=== PATIENT | male | born 1935 | race Caucasian/White ===

== ENCOUNTER 2021-05-24 17:07 | Inpatient (IN) | payer MEDICARE ==
[~2021-05-24] VITALS: Ht 157.4 cm; Wt 43.7 kg
[2021-05-24 17:34] VITALS: BP 122/69
[2021-05-24 19:34] LABS: BASO % 0.1 % (0.0-1.0); HEMATOCRIT 38.4 % (42.0-52.0); LYMPH # 0.9 10*3/uL (1.3-4.4); LYMPH % 12.5 % (27.0-41.0); MEAN CELL VOLUME 89.5 fl (80.0-94.0); MEAN CORPUSCULAR HGB CONC 34.6 g/dl (33.0-37.0); MEAN PLATELET VOLUME 9.6 fl (9.6-12.3); MONO # 0.9 10*3/uL (0.1-1.0); MONO % 12.2 % (3.0-9.0); NEUT # 5.5 10*3/uL (2.3-7.9); NEUT % 74.9 % (47.0-73.0); PLATELET COUNT AUTOMATED 212 10*3/uL (130-400); RED BLOOD COUNT 4.29 10*6/uL (4.50-5.90); RED CELL DISTRI WIDTH 13.3 % (0-14.5); WHITE BLOOD COUNT 7.4 10*3/uL (4.8-10.8)
[2021-05-24 19:56] LABS: ALBUMIN 2.6 gm/dl (3.1-4.5); ALKALINE PHOSPHATASE 66 U/L (45-117); BUN 21 mg/dl (7-24); CHLORIDE 99 mmol/L (98-107); CREATININE 0.73 mg/dL (0.70-1.30); POTASSIUM 3.5 mmol/L (3.5-5.1); SGOT/AST 26 IU/L (3-35); SGPT/ALT 25 U/L (12-78); SODIUM 134 mmol/L (136-145); TOTAL PROTEIN 6.6 gm/dL (6.4-8.2)
[2021-05-24 20:37] VITALS: BP 97/67
[2021-05-24 21:41] VITALS: BP 115/51
[2021-05-24 23:18] VITALS: BP 118/56
[2021-05-25] VITALS (11 sets, daily range): BP systolic 99–136; BP diastolic 56–82
[2021-05-25 05:42] LABS: CHLORIDE 104 mmol/L (98-107); POTASSIUM 3.2 mmol/L (3.5-5.1); SODIUM 137 mmol/L (136-145)
[2021-05-25 05:54] LABS: ALBUMIN 2.2 gm/dl (3.1-4.5); ALKALINE PHOSPHATASE 58 U/L (45-117); BUN 20 mg/dl (7-24); CREATININE 0.58 mg/dL (0.70-1.30); LDH 209 U/L (87-241); SGOT/AST 25 IU/L (3-35); SGPT/ALT 21 U/L (12-78); TOTAL PROTEIN 5.8 gm/dL (6.4-8.2)
[2021-05-25 06:11] LABS: BASO % 0.3 % (0.0-1.0); HEMATOCRIT 35.5 % (42.0-52.0); LYMPH # 1.2 10*3/uL (1.3-4.4); LYMPH % 17.9 % (27.0-41.0); MEAN CELL VOLUME 90.1 fl (80.0-94.0); MEAN CORPUSCULAR HGB CONC 34.4 g/dl (33.0-37.0); MEAN PLATELET VOLUME 10.2 fl (9.6-12.3); MONO # 0.9 10*3/uL (0.1-1.0); MONO % 12.9 % (3.0-9.0); NEUT # 4.7 10*3/uL (2.3-7.9); NEUT % 68.6 % (47.0-73.0); PLATELET COUNT AUTOMATED 194 10*3/uL (130-400); RED BLOOD COUNT 3.94 10*6/uL (4.50-5.90); RED CELL DISTRI WIDTH 13.3 % (0-14.5); WHITE BLOOD COUNT 6.9 10*3/uL (4.8-10.8)
[2021-05-25 06:16] LABS: ACT PARTIAL THROMBO TIME 36.1 SECONDS (20.0-32.1)
[2021-05-25 07:11] LABS: VITAMIN D, 25-HYDROXY 29.8 ng/mL (30-100)
[2021-05-25 07:12] LABS: FERRITIN 255.6 ng/mL (22.0-322.0)
[2021-05-25] MEDS ORDERED: DOCUPRENE100 M1 PO (09:39)
[2021-05-25] MEDS ORDERED: REFRESH RELIEVA10 ML OU (09:39)
[2021-05-25] MEDS ORDERED: FERROUS SULFAT325 MG PO (09:40)
[2021-05-25] MEDS ORDERED: HEARTBURN RELIE20 MG PO (09:40)
[2021-05-25] MEDS ORDERED: HYDROCORTISONE30 GM R (09:41)
[2021-05-25] MEDS ORDERED: LEVOXYL75 MCG PO (09:42)
[2021-05-25] MEDS ORDERED: ENSURE 237 ML237 ML PO (09:44)
[2021-05-25] MEDS ORDERED: ASMANEX220 MC4 INH (09:44)
[2021-05-25] MEDS ORDERED: STRIVERDI RESPIM4 GM INH (09:45)
[2021-05-25] MEDS ORDERED: ASPIRIN ADULT L81 M1 PO (09:46)
[2021-05-25] MEDS ORDERED: [UNRECOGNIZED DRUG - OTHER] T (09:46)
[2021-05-25] MEDS ORDERED: COMPLETE SENIO1 EACH PO (09:47)
[2021-05-26 04:00] VITALS: BP 126/72
[2021-05-26 06:30] LABS: BASO % 0.1 % (0.0-1.0); HEMATOCRIT 43.1 % (42.0-52.0); LYMPH # 1.3 10*3/uL (1.3-4.4); LYMPH % 13.7 % (27.0-41.0); MEAN CELL VOLUME 92.3 fl (80.0-94.0); MEAN CORPUSCULAR HGB 30.4 pg (27.0-31.0); MEAN CORPUSCULAR HGB CONC 32.9 g/dl (33.0-37.0); MEAN PLATELET VOLUME 9.8 fl (9.6-12.3); MONO # 1.2 10*3/uL (0.1-1.0); MONO % 12.1 % (3.0-9.0); NEUT % 73.6 % (47.0-73.0); PLATELET COUNT AUTOMATED 221 10*3/uL (130-400); RED BLOOD COUNT 4.67 10*6/uL (4.50-5.90); RED CELL DISTRI WIDTH 13.6 % (0-14.5); WHITE BLOOD COUNT 9.5 10*3/uL (4.8-10.8)
[2021-05-26 07:05] LABS: ALBUMIN 2.4 gm/dl (3.1-4.5); ALKALINE PHOSPHATASE 69 U/L (45-117); BUN 28 mg/dl (7-24); CHLORIDE 105 mmol/L (98-107); CREATININE 0.77 mg/dL (0.70-1.30); POTASSIUM 3.7 mmol/L (3.5-5.1); SGOT/AST 36 IU/L (3-35); SGPT/ALT 30 U/L (12-78); SODIUM 139 mmol/L (136-145); TOTAL PROTEIN 6.6 gm/dL (6.4-8.2)
[2021-05-26 08:00] VITALS: BP 126/72; BP 129/80
[2021-05-26 12:00] VITALS: BP 130/65
[2021-05-26 16:00] VITALS: BP 123/66
[2021-05-26 20:00] VITALS: BP 95/56
[2021-05-27] VITALS: BP 129/56
[2021-05-27 06:13] LABS: BASO % 0.1 % (0.0-1.0); HEMATOCRIT 38.2 % (42.0-52.0); LYMPH # 0.9 10*3/uL (1.3-4.4); LYMPH % 9.8 % (27.0-41.0); MEAN CELL VOLUME 89.9 fl (80.0-94.0); MEAN CORPUSCULAR HGB 30.6 pg (27.0-31.0); MONO # 0.9 10*3/uL (0.1-1.0); MONO % 9.9 % (3.0-9.0); NEUT # 7.4 10*3/uL (2.3-7.9); NEUT % 79.7 % (47.0-73.0); PLATELET COUNT AUTOMATED 227 10*3/uL (130-400); RED BLOOD COUNT 4.25 10*6/uL (4.50-5.90); RED CELL DISTRI WIDTH 13.7 % (0-14.5); WHITE BLOOD COUNT 9.3 10*3/uL (4.8-10.8)
[2021-05-27 06:31] LABS: ALBUMIN 2.3 gm/dl (3.1-4.5); BUN 36 mg/dl (7-24); CHLORIDE 105 mmol/L (98-107); POTASSIUM 4.1 mmol/L (3.5-5.1); SODIUM 141 mmol/L (136-145)
[2021-05-27 06:35] LABS: CREATININE 0.57 mg/dL (0.70-1.30); SGOT/AST 39 IU/L (3-35); SGPT/ALT 29 U/L (12-78); TOTAL PROTEIN 6.1 gm/dL (6.4-8.2)
[2021-05-27 06:42] LABS: ALKALINE PHOSPHATASE 63 U/L (45-117)
[2021-05-27 08:00] VITALS: BP 120/67
[2021-05-27 12:00] VITALS: BP 124/76
[2021-05-27 16:00] VITALS: BP 124/73
[2021-05-27 20:00] VITALS: BP 118/69
[2021-05-28] VITALS: BP 104/59
[2021-05-28 03:29] VITALS: BP 172/104
[2021-05-28 06:55] LABS: BASO % 0.1 % (0.0-1.0); HEMATOCRIT 41.5 % (42.0-52.0); LYMPH % 9.2 % (27.0-41.0); MEAN CELL VOLUME 92.4 fl (80.0-94.0); MEAN CORPUSCULAR HGB 30.5 pg (27.0-31.0); MEAN PLATELET VOLUME 10.2 fl (9.6-12.3); MONO # 1.2 10*3/uL (0.1-1.0); NEUT # 8.6 10*3/uL (2.3-7.9); NEUT % 79.1 % (47.0-73.0); PLATELET COUNT AUTOMATED 255 10*3/uL (130-400); RED BLOOD COUNT 4.49 10*6/uL (4.50-5.90); RED CELL DISTRI WIDTH 13.7 % (0-14.5); WHITE BLOOD COUNT 10.9 10*3/uL (4.8-10.8)
[2021-05-28 07:13] LABS: CHLORIDE 105 mmol/L (98-107); POTASSIUM 3.9 mmol/L (3.5-5.1); SODIUM 141 mmol/L (136-145)
[2021-05-28 07:28] LABS: ALBUMIN 2.5 gm/dl (3.1-4.5); ALKALINE PHOSPHATASE 70 U/L (45-117); BUN 32 mg/dl (7-24); CREATININE 0.62 mg/dL (0.70-1.30); SGOT/AST 28 IU/L (3-35); SGPT/ALT 30 U/L (12-78); TOTAL PROTEIN 6.6 gm/dL (6.4-8.2)
[2021-05-28 08:00] VITALS: BP 109/74
[2021-05-28 12:00] VITALS: BP 105/90
[2021-05-28 16:00] VITALS: BP 101/67
[2021-05-28 20:00] VITALS: BP 116/72
[2021-05-29] VITALS: BP 120/65
[2021-05-29 06:19] LABS: BASO % 0.1 % (0.0-1.0); HEMATOCRIT 37.5 % (42.0-52.0); LYMPH # 0.5 10*3/uL (1.3-4.4); LYMPH % 5.5 % (27.0-41.0); MEAN CELL VOLUME 90.6 fl (80.0-94.0); MEAN CORPUSCULAR HGB 30.4 pg (27.0-31.0); MEAN CORPUSCULAR HGB CONC 33.6 g/dl (33.0-37.0); MEAN PLATELET VOLUME 9.8 fl (9.6-12.3); MONO # 0.8 10*3/uL (0.1-1.0); MONO % 8.4 % (3.0-9.0); NEUT # 8.2 10*3/uL (2.3-7.9); NEUT % 85.5 % (47.0-73.0); PLATELET COUNT AUTOMATED 261 10*3/uL (130-400); RED BLOOD COUNT 4.14 10*6/uL (4.50-5.90); RED CELL DISTRI WIDTH 13.7 % (0-14.5); WHITE BLOOD COUNT 9.6 10*3/uL (4.8-10.8)
[2021-05-29 06:46] LABS: CHLORIDE 107 mmol/L (98-107); POTASSIUM 3.9 mmol/L (3.5-5.1); SODIUM 143 mmol/L (136-145)
[2021-05-29 06:49] LABS: BUN 30 mg/dl (7-24)
[2021-05-29 08:00] VITALS: BP 126/72
[2021-05-29 12:00] VITALS: BP 127/45; BP 150/80
[2021-05-29] MEDS ORDERED: DECADRON6 M1 PO (12:36)
== END 2021-05-29 15:24 | disposition home health service (06) | DRG 871 ==
LOC: ED 17:07 → EDHOLD 21:10 → 4E 21:10 → EDHOLD 05-25 10:43 → 4E 05-25 20:18
PROVIDERS: Family Medicine; Internal Medicine; Physician Assistant; ADMIT Internal Medicine; ATTEND Internal Medicine
PROC: XW033E5 Introduction of Remdesivir Anti-infective into Peripheral Vein, Percutaneous Approach, New Technology Group 5 (ICD-10-PCS; principal; 2021-05-25)
DX: A41.9 Sepsis, unspecified organism (principal); U07.1 COVID-19; J12.82 Pneumonia due to coronavirus disease 2019; E43 Unspecified severe protein-calorie malnutrition; J96.01 Acute respiratory failure with hypoxia; E87.1 Hypo-osmolality and hyponatremia; Z68.1 Body mass index [BMI] 19.9 or less, adult; R73.9 Hyperglycemia, unspecified; R65.20 Severe sepsis without septic shock; D64.9 Anemia, unspecified; E55.9 Vitamin D deficiency, unspecified; Z88.0 Allergy status to penicillin; Z88.8 Allergy status to other drugs, medicaments and biological substances; Z79.82 Long term (current) use of aspirin; Z79.899 Other long term (current) drug therapy

== ENCOUNTER → 2021-08-26 | Outpatient (CLI) | payer MEDICARE ==
[~2021-08-26] MED LIST: ASMANEX220 MC4 INH; ASPIRIN ADULT L81 M1 PO; COMPLETE SENIO1 EACH PO; DECADRON6 M1 PO; DOCUPRENE100 M1 PO; ENSURE 237 ML237 ML PO; FERROUS SULFAT325 MG PO; HEARTBURN RELIE20 MG PO; HYDROCORTISONE30 GM R; LEVOXYL75 MCG PO; REFRESH RELIEVA10 ML OU; STRIVERDI RESPIM4 GM INH; [UNRECOGNIZED DRUG - OTHER] T
== END | disposition home or self-care (01) ==
LOC: RAD/SH 10:22
PROVIDERS: ATTEND Family Medicine
DX: R13.12 Dysphagia, oropharyngeal phase (principal)